=== PATIENT | female | born 1980 | race American Indian/Alaskan Native ===

== ENCOUNTER 2019-05-30 22:16 | Emergency (ER) | payer SELFPAY ==
[2019-05-30] MEDS ORDERED: amLODIPine 5 MG TAB PO ONE (23:29)
[2019-05-31 00:51] LABS: Basophils # (Auto) 0.2 K/mm3 (0.0-0.1); Eosinophils # (Auto) 0.5 K/mm3 (0.0-0.4); Hematocrit 38.8 % (30.3-42.9); Hemoglobin 12.9 gm/dl (10.1-14.3); Lymphocytes # (Auto) 1.2 K/mm3 (1.2-5.4); Lymphocytes % (Auto) 22.4 % (13.4-35.0); Mean Corpuscular HGB Conc 33 % (30-34); Mean Corpuscular Volume 91 fl (79-97); Monocytes # (Auto) 0.5 K/mm3 (0.0-0.8); Platelet Count 223 K/mm3 (140-440); Red Blood Count 4.25 M/mm3 (3.65-5.03); Red Cell Distribution Width 13.6 % (13.2-15.2)
[2019-05-31 01:00] LABS: INR 1.05 (0.87-1.13)
--- NOTE | 2019-05-31 02:02 | Cat Scan Report ---
Examination: CT of the head without contrast Clinical information: Headache. Nosebleed. Comparison: None Technical: Multiple axial CT images of the head were obtained without intravenous contrast. Sagittal and coronal reformats were obtained. All CTs at this facility utilize dose reduction techniques inc luding automated exposure control, iterative reconstruction and weight based dosing when appropriate to reduce patient radiation dose to as low as reasonable achievable. Findings: There is no CT evidence of acute intracranial hemorrhage or large territorial infarct. The ventricula r system is normal in size. There are no extra-axial fluid collections. A subtle region of low densit y is seen within the right frontal lobe with what appears to be an overlying right frontal ashleigh hole. Evaluation of the calvarium demonstrates no evidence of acute bony abnormality. There is moderate muc osal thickening of the ethmoid air cells. Impression: 1. No CT evidence of acute intracranial hemorrhage. 2. Subtle low density region within the right frontal lobe with what appears to be an overlying the r ight frontal ashleigh hole. This suggests the patient has had previous intervention at this site and most likely represents a chronic finding. However, I do not have any prior studies for comparison to conf ir this. Please correlate with patient's clinical history and any prior imaging. Signer Name: Dayana Pace MD Signed: 05/31/2019 1:58 AM Workstation Name: [id number]
--- NOTE | 2019-05-31 02:29 | Emergency Department Report ---
ED Headache HPI - General Chief Complaint: Nosebleed Stated Complaint: HEADACHE, NOSEBLEED Time Seen by Provider: 05/31/19 00:37 - History of Present Illness Initial Comments: This is a 39-year-old female nontoxic, well nourished in appearance, no acute signs of distress presents to the ED with c/o of headache that started 3 days ago. Patient also stated has intermittent nose bleeds with last one earlier today. Currently denies any nosebleed. Patient denies any facial droop. 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 Patient currently denies any new symptoms of weakness. Patient describes headache as diffuse with level of 8 out of 10. Patient denies thunderclap headache. Patient denies any radiation of pain. Patient denies any head trauma. Patient denies any visual changes. Patient denies worse headache. Patient stated that darkness makes headache better and bright lights make the headache worse. Patient denies any numbness, tingling, fever, chills, nausea, vomiting, chest pain, shortness of breath, stiff neck. Patient denies facial drooping or one sided weakness. Patient denies any radiation of pain. Patient denies any allergies. Patient did state has past medical history of hypertension but has not been taking her blood pressure medication, amlodipine, for the past week. Quality: moderate, achy Head Injury Location: other (diffuse) Recent Head Trauma: occasional headaches Associated Symptoms: denies symptoms. denies: confusion, fatigue, facial pain, fever/chills, flushing, loss of consciousness, nausea/vomiting, nasal congestion, nasal drainage, numbness in legs/feet, rash, seizures, sinus infection, stiff neck, vision changes, weakness Allergies/Adverse Reactions: Allergies No Known Allergies Allergy (Verified 05/31/19 00:34) Home Medications: Ambulatory Orders amLODIPine 10 mg PO DAILY 05/30/19 amLODIPine 10 mg PO DAILY #30 tab 05/31/19 ED Review of Systems ROS: Stated complaint: HEADACHE, NOSEBLEED Other details as noted in HPI Constitutional: denies: chills, fever Eyes: denies: eye pain, eye discharge, vision change ENT: epistaxis. denies: ear pain, throat pain Respiratory: denies: cough, shortness of breath, wheezing Cardiovascular: denies: chest pain, palpitations Endocrine: no symptoms reported Gastrointestinal: denies: abdominal pain, nausea, diarrhea Genitourinary: denies: urgency, dysuria, discharge Musculoskeletal: denies: back pain, joint swelling, arthralgia Skin: denies: rash, lesions Neurological: headache. denies: weakness, paresthesias Psychiatric: denies: anxiety, depression Hematological/Lymphatic: denies: easy bleeding, easy bruising ED Past Medical Hx - Past Medical History Previous Medical History?: Yes Hx Hypertension: Yes Hx CVA: Yes Additional medical history: Cerebral Aneurysm - Surgical History Past Surgical History?: Yes Additional Surgical History: Brain surgery - Social History Smoking Status: Never Smoker Substance Use Type: None - Medications Home Medications: Home Medications Medication Instructions Recorded Confirmed Last Taken Type amLODIPine 10 mg PO DAILY 05/30/19 05/30/19 Unknown History amLODIPine 10 mg PO DAILY #30 tab 05/31/19 Unknown Rx ED Physical Exam - General Limitations: No Limitations General appearance: alert, in no apparent distress - Head Head exam: Present: atraumatic, normocephalic - Eye Eye exam: Present: normal appearance, PERRL, EOMI - ENT ENT exam: Present: normal exam, normal orophraynx, other (no epistaxis. No hematoma to nasal cavity noted.) - Neck Neck exam: Present: normal inspection, full ROM. Absent: tenderness, meningismus, lymphadenopathy - Respiratory Respiratory exam: Present: normal lung sounds bilaterally. Absent: respiratory distress, wheezes, rales, rhonchi, stridor, chest wall tenderness, accessory muscle use, decreased breath sounds, prolonged expiratory - Cardiovascular Cardiovascular Exam: Present: regular rate, normal rhythm, normal heart sounds - Extremities Exam Extremities exam: Present: normal inspection, full ROM - Back Exam Back exam: Present: normal inspection, full ROM. Absent: tenderness, CVA tenderness (R), CVA tenderness (L), muscle spasm, paraspinal tenderness, vertebral tenderness, rash noted - Neurological Exam Neurological exam: Present: alert, oriented X3, normal gait - Expanded Neurological Exam Expanded Patient oriented to: Present: person, place, time Cranial nerves: EOM's Intact: Normal, Facial Sensation: Normal Cerebellar function: Finger to Nose: Normal Motor strength exam: RUE: 5, LUE: 5, RLE: 5, LLE: 5 Best Eye Response ([place]): (4) open spontaneously Best Motor Response ([place]): (6) obeys commands Best Verbal Response ([place]): (5) oriented [place] Total: 15 - Psychiatric Psychiatric exam: Present: normal affect, normal mood - Skin Skin exam: Present: warm, dry, intact, normal color. Absent: rash ED Course Vital Signs 05/30/19 05/30/19 05/31/19 22:28 23:31 00:47 Temperature 98.4 F Pulse Rate 58 L 59 L 60 Respiratory 12 16 Rate Blood Pressure 173/118 173/118 Blood Pressure 160/94 [Left] O2 Sat by Pulse 99 99 Oximetry - Reevaluation(s) Reevaluation #1: 05/31/19 02:31 Patient is speaking in full sentences with no signs of distress noted. - Consultations Consultation #1: 05/31/19 02:31 Patient has been consulted with Luis E Martínez about patient history, physical exam, and labs/CT results and agrees to ED plan of care and discharge plan of care. ED Medical Decision Making - Lab Data Result diagrams: 05/31/19 00:19 05/31/19 00:19 - Medical Decision Making This is a 39-year-old female that presents with headache secondary to uncontrolled hypertension. Patient is stable and was examined by me. Patient is neurologically stable. There is no stiff neck or neck pain. Vital signs are stable. Patient is afebrile. CT scan of head/brain has been obtained and dictated by radiologist unremarkable. Pitches notified of the CT results with no questions noted by the patient. Labs are unremarkable. Patient received amlodipine in the ER. Blood pressure has decreased prior to discharge. Patient did state her headache is currently subsided and feels much better. Patient will be discharged with amlodipine as she has not been taking it. 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 At time of discharge, the patient does not seem toxic or ill in appearance. No acute signs of distress noted. Patient agrees to discharge treatment plan of care. No further questions noted by the patient. - Differential Diagnosis intracranial hemorrhage, CVA, atypical headache, uncontrolled hypertension Critical care attestation.: If time is entered above; I have spent that time in minutes in the direct care of this critically ill patient, excluding procedure time. ED Disposition Clinical Impression: Hypertensive urgency Headache Qualifiers: Headache type: unspecified Headache chronicity pattern: episodic headache Intractability: not intractable Qualified Code(s): R51 - Headache Disposition: DC- TO HOME OR SELFCARE Is pt being admited?: No Does the pt Need Aspirin: No Condition: Stable Instructions: Hypertensive Crisis (ED), Acute Headache (ED) Additional Instructions: Follow-up with a primary care/chip mixing machine operator doctor in 3-5 days or if symptoms worsen and continue return to emergency room as soon as possible. Prescriptions: amLODIPine 10 mg PO DAILY #30 tab Referrals: PRIMARY CAREMD [Primary Care Provider] - 3-5 Days JORDYN ESPINOSA MD [Staff Physician] - 3-5 Days [facility] [Outside] - 3-5 Days [facility] [Outside] - 3-5 Days CHRYSTAL MELO MD [Staff Physician] - 3-5 Days Forms: Work/School Release Form(ED)
[2019-05-31 02:44] VITALS: BP 166/97
== END 2019-05-31 02:45 | disposition home or self-care (01) ==
LOC: ED 22:16
DX: I16.0 Hypertensive urgency (principal); Z86.73 Personal history of transient ischemic attack (TIA), and cerebral infarction without residual deficits
CPT/HCPCS: 36415; 70450; 80048; 85025; 85610; 85730

== ENCOUNTER 2019-07-20 10:16 | Emergency (ER) | payer SELFPAY ==
[2019-07-20] MEDS ORDERED: amLODIPine 5 MG TAB PO ONE (12:12)
--- NOTE | 2019-07-20 12:20 | Emergency Department Report ---
ED General Adult HPI - General Chief complaint: High BP Stated complaint: HBP/MED REFILL Time Seen by Provider: 07/20/19 11:57 Source: patient, family Mode of arrival: Wheelchair Limitations: No Limitations - History of Present Illness Initial comments: 39 yo female prior hx of HTN recently moved from [place] to [place] has not established medical care. She's out of her blood pressure medication Amlodipine x 2 days. She has hx of prior strokes. Currently she is not having any symptoms. She denies chest pain , no sob, no headache. Requesting refill of Amlodipine. Improves with: none Associated Symptoms: denies other symptoms. denies: confusion, chest pain, cough, headaches, loss of appetite, nausea/vomiting, shortness of breath Treatments Prior to Arrival: none - Related Data Home Medications Medication Instructions Recorded Confirmed Last Taken amLODIPine 10 mg PO DAILY 05/30/19 05/30/19 Unknown Previous Rx's Medication Instructions Recorded Last Taken Type amLODIPine 10 mg PO DAILY #30 tab 05/31/19 Unknown Rx amLODIPine 10 mg PO DAILY #30 tab 07/20/19 Unknown Rx Allergies Allergy/AdvReac Type Severity Reaction Status Date / Time lisinopril Allergy Unknown Verified 07/20/19 10:27 ED Review of Systems ROS: Stated complaint: HBP/MED REFILL Other details as noted in HPI Comment: All other systems reviewed and negative Cardiovascular: denies: chest pain, palpitations, edema, syncope Endocrine: denies: excessive sweating, flushing Gastrointestinal: denies: abdominal pain Neurological: denies: headache, paresthesias, abnormal gait ED Past Medical Hx - Past Medical History Hx Hypertension: Yes Hx CVA: Yes Additional medical history: Cerebral Aneurysm - Surgical History Additional Surgical History: Brain surgery - Social History Smoking Status: Never Smoker Substance Use Type: None - Medications Home Medications: Home Medications Medication Instructions Recorded Confirmed Last Taken Type amLODIPine 10 mg PO DAILY 05/30/19 05/30/19 Unknown History amLODIPine 10 mg PO DAILY #30 tab 05/31/19 Unknown Rx amLODIPine 10 mg PO DAILY #30 tab 07/20/19 Unknown Rx ED Physical Exam - General Limitations: No Limitations General appearance: alert, in no apparent distress - Head Head exam: Present: atraumatic, normal inspection - Eye Eye exam: Present: normal appearance. Absent: conjunctival injection - ENT ENT exam: Present: normal exam - Neck Neck exam: Present: normal inspection - Respiratory Respiratory exam: Present: normal lung sounds bilaterally. Absent: respiratory distress, wheezes, rales - Cardiovascular Cardiovascular Exam: Present: regular rate, normal rhythm, normal heart sounds - GI/Abdominal GI/Abdominal exam: Present: soft. Absent: distended, tenderness, guarding - Extremities Exam Extremities exam: Present: normal inspection - Neurological Exam Neurological exam: Present: alert, oriented X3, other (slurred speech from prior hx of stroke) - Psychiatric Psychiatric exam: Present: normal affect - Skin Skin exam: Present: warm, dry, intact, normal color ED Course Vital Signs 07/20/19 11:48 Temperature 97.8 F Pulse Rate 48 L Respiratory 16 Rate Blood Pressure 151/1 [Right] O2 Sat by Pulse 100 Oximetry ED Medical Decision Making - Medical Decision Making 39 yo female recently located to this area. Out of her BP medication x 2 days requesting refill. She's had prior strokes left her with slurred speech. She's very pleasant alert with no current complaints pt is just requesting medication refill. She denies chest pain, no sob, no headache no change in mental status. Amlodipine 10mg po given in ER and RX for 30 DAYS GIVEN Critical Care Time: No Critical care attestation.: If time is entered above; I have spent that time in minutes in the direct care of this critically ill patient, excluding procedure time. ED Disposition Clinical Impression: Hypertension Qualifiers: Hypertension type: essential hypertension Qualified Code(s): I10 - Essential (primary) hypertension Disposition: TO HOME OR SELFCARE Is pt being admited?: No Does the pt Need Aspirin: No Condition: Stable Instructions: Hypertension (ED) Prescriptions: amLODIPine 10 mg PO DAILY #30 tab Referrals: [facility] MD ROSSY [Primary Care Provider] - 3-5 Days MARLNO GAMINO MD [Staff Physician] - 3-5 Days Time of Disposition: 12:27
[2019-07-20 12:33] VITALS: BP 151/109
== END 2019-07-20 12:33 | disposition home or self-care (01) ==
LOC: ED 10:16
DX: I10 Essential (primary) hypertension (principal); Z76.0 Encounter for issue of repeat prescription; Z86.73 Personal history of transient ischemic attack (TIA), and cerebral infarction without residual deficits; Z79.899 Other long term (current) drug therapy; Z88.8 Allergy status to other drugs, medicaments and biological substances